=== PATIENT | female | born 1980 | race African-American/Black ===

== ENCOUNTER 2017-09-16 17:16 | Emergency (ER) | payer SELFPAY ==
--- NOTE | 2017-09-16 18:34 | EDM.PDOC ---
ED HPI GENERAL MEDICAL PROBLEM - General Chief Complaint: Lower Extremity Injury/Pain Stated Complaint: RT LEG PAIN Time Seen by Provider: 09/16/17 17:26 Source of Information: Reports: Patient History Limitations: Reports: No Limitations - History of Present Illness INITIAL COMMENTS - FREE TEXT/NARRATIVE: History of present illness: []Patient started doing yoga a few weeks ago and started having knee pain that has improved however her pain now is in her calf. She denies any leg or foot swelling, chest pain or shortness of breath. Also requesting a test be done Review of systems: As per history of present illness and below otherwise all systems reviewed and negative. Past medical history: As per history of present illness and as reviewed below otherwise noncontributory. Surgical history: As per history of present illness and as reviewed below otherwise noncontributory. Social history: No reported history of drug or alcohol abuse. Family history: As per history of present illness and as reviewed below otherwise noncontributory. Physical exam: General: Well developed, well nourished in NAD HEENT: Atraumatic, normocephalic, pupils reactive, negative for conjunctival pallor or scleral icterus, mucous membranes moist, throat clear, neck supple, nontender, trachea midline. Lungs: Clear to auscultation, breath sounds equal bilaterally, chest nontender. Heart: S1S2, regular, negative for clicks, rubs, or JVD. Abdomen: Soft, nondistended, nontender. Negative for masses or hepatosplenomegaly. Negative for costovertebral tenderness. Pelvis: Stable nontender. Genitourinary: Deferred. Rectal: Deferred. Extremities: Atraumatic, negative for cords or calf pain. Neurovascular unremarkable. Neuro: Awake, alert, oriented. Cranial nerves II through XII unremarkable. Cerebellum unremarkable. Motor and sensory unremarkable throughout. Exam nonfocal. Diagnostics: []Ultrasound ordered after a positive d-dimer was resulted patient requested hCG screen and that was ordered in the serum results pending Dr. Ledezma to dispose patient Therapeutics: [] Impression: [] Plan: [] Definitive disposition and diagnosis as appropriate pending reevaluation and review of above. Right Leg Pain Score (Numeric/FACES): 6 - Related Data Allergies Allergy/AdvReac Type Severity Reaction Status Date / Time No Known Allergies Allergy Verified 09/16/17 18:13 Home Meds: Home Meds Levothyroxine 175 mcg PO ACBRK 09/16/17 [History] amLODIPine [Norvasc] 1 tab PO DAILY 09/16/17 [History] Past Medical History Cardiovascular History: Reports: Hypertension Endocrine/Metabolic History: Reports: Hypothyroidism Social & Family History - Family History Family Medical History: Noncontributory - Tobacco Use Smoking Status *Q: Never Smoker - Caffeine Use Caffeine Use: Reports: Coffee - Recreational Drug Use Recreational Drug Use: No Review of Systems - Review of Systems Review Of Systems: See Below (See history of present illness) ED EXAM, GENERAL - Physical Exam Exam: See Below (See history of present illness) Course - Vital Signs Last Recorded V/S: Last Vital Signs Temp 98.1 F 09/16/17 18:10 Pulse 62 09/16/17 22:08 Resp 12 09/16/17 22:08 BP 125/75 09/16/17 22:08 Pulse Ox 100 09/16/17 22:08 - Orders/Labs/Meds Orders: Active Orders 24 hr Category Date Time Status Venous Doppler Lwr Ext Rt [US] Stat Exams 09/16/17 18:30 Taken Labs: Laboratory Tests 09/16/17 09/16/17 Range/Units 17:57 17:57 D-Dimer, Quantitative 3.58 H (0.0-0.52) mg/LFEU HCG, Qual NEGATIVE (NEG) Departure - Departure Time of Disposition: 19:00 Disposition: Still A Patient 30 Clinical Impression: Pain of lower leg - Discharge Information Instructions: Medical Screening Exam Referrals: Radha Yan HEAT TREATING BLUER [Primary Care Provider] - Forms: ED Department Discharge - My Orders Last 24 Hours: My Active Orders 09/16/17 18:30 Venous Doppler Lwr Ext Rt [US] Stat - Assessment/Plan Last 24 Hours: My Active Orders 09/16/17 18:30 Venous Doppler Lwr Ext Rt [US] Stat
--- NOTE | 2017-09-17 15:46 | US ---
EXAM DATE: 09/16/17 PATIENT'S AGE: 37 Patient: CHAN SARMIENTO Facility: [place], [place] Site . Site : [id number] Study: US Extremity Right [id number]/[id number] 7:33:48 PM Ordering Physician: Ty Esquivel Final Report: INDICATION: Calf pain TECHNIQUE: Ultrasound venous duplex lower right extremity. Compression venous exam was performed using weiner-scale, color Doppler, and spectral Doppler imaging. COMPARISON: None available FINDINGS: The right common femoral vein is fully compressible. The proximal superficial femoral vein appears incompletely compressible on the submitted image, although reported to be fully compressible by the technologist, compatible with a partial thrombus. Grayscale evaluation of the mid to distal superficial femoral vein is limited, however color Doppler flow is present. The popliteal vein appears compressible. The visualized portions of the posterior tibial and peroneal veins demonstrates color Doppler flow, however grayscale compression images are not submitted. IMPRESSION: Findings consistent with partial deep venous thrombosis in the proximal right superficial femoral vein. Recommend repeat evaluation. Dictated by Adán Mcgee MD @ 09/16/2017 8:34:08 PM Dictated by: Adán Mcgee MD @ 09/16/2017 20:34:14 ----- ADDENDUM ----- The findings were discussed with Dr. Solis, by phone, on 09/16/2017 at 8:40 p.m. Dictated by Adán Mcgee MD @ Sep 16 2017 8:53PM ----- ADDENDUM ----- Additional grayscale compression images of the proximal to mid right superficial femoral vein have been submitted, including real-time Cine images, which demonstrate complete compressibility of the vessel, without sonographic evidence of regional deep venous thrombosis at this time. Dictated by Adán Mcgee MD @ Sep 16 2017 9:09PM (Electronic Signature) Report Signed by Proxy. GUILLERMINA
== END 2017-09-16 22:09 | disposition still patient (30) ==
LOC: MW.ED 17:16
DX: M79.661 Pain in right lower leg (principal); I10 Essential (primary) hypertension; E03.9 Hypothyroidism, unspecified; Z79.899 Other long term (current) drug therapy
CPT/HCPCS: 36415; 84703; 85379; 93971-26-RT; 93971-RT; 99284; 99284-25

== ENCOUNTER 2018-06-30 05:32 | Inpatient (IN) | payer BC ==
--- NOTE | 2018-06-29 09:46 | PCM.LDHP ---
L&D History of Present Illness - General Date of Service: 06/29/18 Admit Problem/Dx: Patient Status Order with Admit Dx/Problem 06/29/18 09:41 Patient Status [ADT] Routine Admission Diagnosis/Problem Admission Diagnosis/Problem Source of Information: Patient History Limitations: Reports: No Limitations - History of Present Illness Improves with: Reports: None Worsens with: Reports: None Associated Symptoms: Reports: N - Related Data Allergies/Adverse Reactions: Allergies Allergy/AdvReac Type Severity Reaction Status Date / Time No Known Allergies Allergy Verified 06/27/18 10:34 Home Medications: Home Meds Levothyroxine 175 mcg PO ACBRK 09/16/17 [History] NIFEdipine [Nifedipine ER] 30 mg PO DAILY 05/17/18 [History] Vits #93/Iron Fum/FA [ Formula Tablet] 1 each PO DAILY [History] Past Medical History HEENT History: Reports: Other (See Below) Other HEENT History: wears glasses Cardiovascular History: Reports: Hypertension Other Cardiovascular History: " murmur" Gastrointestinal History: Reports: Other (See Below) Other Gastrointestinal History: heartburn with , hemangioma on liver Genitourinary History: Reports: None 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) Other OB/BYN History: induced AB Endocrine/Metabolic History: Reports: Hypothyroidism, Obesity/BMI 30+ - Past Surgical History Head Surgeries/Procedures: Reports: None Female Surgical History: Reports: Breast Biopsy Social & Family History - Family History Family Medical History: Noncontributory - Tobacco Use Smoking Status *Q: Former Smoker Used Tobacco, but Quit: Yes Month/Year Tobacco Last Used: quit smoking 2 yrs ago - Caffeine Use Caffeine Use: Reports: Coffee - Recreational Drug Use Drug Use in Last 12 Months: No H&P Review of Systems - Review of Systems: Review Of Systems: See Below General: Reports: No Symptoms HEENT: Reports: No Symptoms Pulmonary: Reports: No Symptoms Cardiovascular: Reports: No Symptoms Gastrointestinal: Reports: No Symptoms Genitourinary: Reports: No Symptoms Musculoskeletal: Reports: No Symptoms Skin: Reports: No Symptoms Psychiatric: Reports: No Symptoms Neurological: Reports: No Symptoms Hematologic/Lymphatic: Reports: No Symptoms Immunologic: Reports: No Symptoms L&D Exam - Exam Exam: See Below - Vital Signs Weight: 136.985 kg - OB Specific Fundal Height In cm: 41 Contraction Intensity: Mild Movement: Active Heart Tones: Present Presentation: Vertex - Cortez Score Cortez Score Cervix Position: Midposition Cortez Score Consistency: Firm Cortez Score Effacement: 31-50% Cortez Score Dilation: Closed Cortez Score Infant's Station: -3 Cortez Score Total: 2 - Exam General: Alert, Oriented HEENT: PERRLA, Conjunctiva Clear, EACs Clear, EOMI, Hearing Intact, Mucosa Moist & [place], Nares Patent, Normal Nasal Septum, Posterior Pharynx Clear, TMs Clear Neck: Supple, Trachea Midline Lungs: Clear to Auscultation, Normal Respiratory Effort Cardiovascular: Regular Rate, Regular Rhythm GI/Abdominal Exam: Normal Bowel Sounds, Soft, Non-Tender, No Organomegaly, No Distention, No Abnormal Bruit, No Mass, Pelvis Stable Rectal Exam: Normal Exam, Normal Rectal Tone Genitourinary: Normal external exam, Normal bimanual exam, Normal speculum exam Back Exam: Normal Inspection, Full Range of Motion Extremities: Normal Inspection, Normal Range of Motion, Non-Tender, No Pedal Edema, Normal Capillary Refill Skin: Warm, Dry, Intact Neurological: Cranial Nerves Intact, Reflexes Equal Bilateral Psychiatric: Alert, Normal Affect, Normal Mood Problem List Initiated/Reviewed/Updated: Yes Orders Last 24hrs: Active Orders 24 hr Category Date Time Status Patient Status [ADT] Routine ADT 06/29/18 09:41 Ordered Non Stress Test [RC] PER UNIT ROUTINE Care 06/29/18 09:41 Ordered Procedure Site Prep Instruct [RC] ASDIRECTED Care 06/29/18 09:41 Ordered Up ad Regina [RC] ASDIRECTED Care 06/29/18 09:41 Ordered Vital Signs [RC] PER UNIT ROUTINE Care 06/29/18 09:41 Ordered CBC W/O DIFF,HEMOGRAM [HEME] Routine Lab 06/29/18 09:41 Ordered TYPE AND SCREEN [BBK] Routine Lab 06/29/18 09:41 Ordered Citric Acid/Sodium Citrate [Bicitra Solution] Med 06/29/18 09:41 Once 30 ml PO ONETIME ONE Lactated Ringers [Ringers, Lactated] 1,000 ml Med 06/29/18 09:45 Ordered IV BOLUS Oxytocin/0.9 % Sodium Chloride [Oxytocin 30 Unit/500 ML Med 06/29/18 09:45 Ordered -NS] 30 unit in 500 ml IV TITRATE Sodium Chloride 0.9% [Saline Flush] Med 06/29/18 09:41 Ordered 10 ml FLUSH ASDIRECTED PRN Sodium Chloride 0.9% [Saline Flush] Med 06/29/18 09:41 Ordered 2.5 ml FLUSH ASDIRECTED PRN ceFAZolin [Ancef] 2 gm Med 06/29/18 09:41 Ordered Premix Bag 1 bag IV ONETIME Peripheral IV Insertion Adult [OM.PC] Routine Oth 06/29/18 09:41 Ordered Schedule Procedure [COMM] Per Unit Routine Oth 06/29/18 09:41 Ordered Resuscitation Status Routine Resus Stat 06/29/18 09:41 Ordered Assessment/Plan Comment:: This is 38 years old patient and she is 58+4 she is admitted for elective repeat section primary because of her advanced maternal age and also because she have a 60 cm hepatic hemangioma her vital sign and her liver function tests is stable. It is recommended for her to have a primary section by the perinatologist and by that hepatic disease websphere commerce consultant and [facility].
[~2018-06-30 05:32] MED LIST: Citric Acid/Sodium Citrate Solution 30 ML Cup PO ONE; Oxytocin/0.9 % Sodium Chloride 30 UNIT/500 ML BAG IV SCH; Sodium Chloride 0.9% 10 ML Syringe FLUSH PRN; Sodium Chloride 0.9% 2.5 ML Syringe FLUSH PRN; ceFAZolin 2 GM in Premix Bag 1 BAG IV ONE
[2018-06-30] MEDS: Lactated Ringers 1,000 ML IV SCH ×2 (05:57→06:45)
--- NOTE | 2018-06-30 06:48 | PCM.PREANE ---
Preanesthetic Assessment - Anesthesia/Transfusion/Family Hx Anesthesia History: Prior Anesthesia Without Reaction Family History of Anesthesia Reaction: No Transfusion History: No Prior Transfusion(s) - Review of Systems General: No Symptoms Pulmonary: No Symptoms Cardiovascular: No Symptoms Gastrointestinal: No Symptoms Neurological: No Symptoms Other: Reports: None - Physical Assessment NPO Status Date: 06/29/18 NPO Status Time: 22:00 Height: 5 ft 8 in Weight: 136.985 kg ASA Class: 3 Mental Status: Alert & Oriented x3 Airway Class: Mallampati = 2 Dentition: Reports: Normal Dentition Thyro-Mental Finger Breadths: 3 Mouth Opening Finger Breadths: 3 ROM/Head Extension: Full Lungs: Clear to Auscultation, Normal Respiratory Effort Cardiovascular: Regular Rate, Regular Rhythm - Lab Values: Laboratory Last Values WBC 7.16 K/uL (4.0-11.0) 06/29/18 10:00 RBC 3.97 M/uL (4.30-5.90) L 06/29/18 10:00 Hgb 12.4 g/dL (12.0-16.0) 06/29/18 10:00 Hct 36.4 % (36.0-46.0) 06/29/18 10:00 MCV 91.7 fL (80.0-98.0) 06/29/18 10:00 MCH 31.2 pg (27.0-32.0) 06/29/18 10:00 MCHC 34.1 g/dL (31.0-37.0) 06/29/18 10:00 RDW Std Deviation 51.3 fl (28.0-62.0) 06/29/18 10:00 RDW Coeff of Danya 15 % (11.0-15.0) 06/29/18 10:00 Plt Count 214 K/uL (150-400) 06/29/18 10:00 MPV 9.80 fL (7.40-12.00) 06/29/18 10:00 Nucleated RBC % 0.0 /100WBC 06/29/18 10:00 Nucleated RBCs # 0 K/uL 06/29/18 10:00 Blood Type O NEGATIVE 06/29/18 10:00 Antibody Screen NEGATIVE 06/29/18 10:00 - Allergies Allergies/Adverse Reactions: Allergies Allergy/AdvReac Type Severity Reaction Status Date / Time No Known Allergies Allergy Verified 06/27/18 10:34 - Anesthesia Plan Free Text/Narrative:: Pt scheduled for elective due to the recommendations of the Hepatic Specialist and Perinatologist at [facility]. Pt also verbally consents to receiving blood or blood products. - Acknowledgements Anesthesia Type Planned: Spinal (Duramorph) Pt an Appropriate Candidate for the Planned Anesthesia: Yes Alternatives and Risks of Anesthesia Discussed w Pt/Guardian: Yes Pt/Guardian Understands and Agrees with Anesthesia Plan: Yes PreAnesthesia Questionnaire HEENT History: Reports: Other (See Below) Other HEENT History: wears glasses Cardiovascular History: Reports: Hypertension Other Cardiovascular History: " murmur" - seen and evaulated by Dr Gregory. Echo essentially unremarkable. 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: , Other (See Below) : 2 Para: 1 LMP (Approximate): Other OB/BYN History: induced AB Musculoskeletal History: Reports: None Neurological History: Reports: None Psychiatric History: Reports: None Endocrine/Metabolic History: Reports: Hypothyroidism, Obesity/BMI 30+ (Morbid obesity) Hematologic History: Reports: None Immunologic History: Reports: None Oncologic (Cancer) History: Reports: None Dermatologic History: Reports: None - Infectious Disease History Infectious Disease History: Reports: None - Past Surgical History Head Surgeries/Procedures: Reports: None Female Surgical History: Reports: Breast Biopsy - SUBSTANCE USE Smoking Status *Q: Former Smoker - HOME MEDS Home Medications: Home Meds Levothyroxine 175 mcg PO ACBRK 09/16/17 [History] NIFEdipine [Nifedipine ER] 30 mg PO DAILY 05/17/18 [History] Vits #93/Iron Fum/FA [ Formula Tablet] 1 each PO DAILY [History] - CURRENT (IN HOUSE) MEDS Current Meds: Current Medications Lactated Ringer's (Ringers, Lactated) 1,000 mls @ 500 mls/hr IV BOLUS ALEXANDER Last Admin: 06/30/18 06:45 Dose: 500 mls/hr Oxytocin/Sodium Chloride (Oxytocin 30 Unit/500 Ml-Ns) 30 unit in 500 mls @ 250 mls/hr IV TITRATE ALEXANDER Sodium Chloride (Saline Flush) 10 ml FLUSH ASDIRECTED PRN PRN Reason: Keep Vein Open Sodium Chloride (Saline Flush) 2.5 ml FLUSH ASDIRECTED PRN PRN Reason: Keep Vein Open Discontinued Medications Citric Acid/Sodium Citrate (Bicitra Solution) 30 ml PO ONETIME ONE Stop: 06/29/18 09:42 Cefazolin Sodium/Dextrose 2 gm (/ Premix) 50 mls @ 100 mls/hr IV ONETIME ONE Stop: 06/29/18 10:10
[2018-06-30] MEDS ORDERED: ceFAZolin/Dextrose,Iso-Osmotic 2 GM/50 ML Duplex Bag IV ONE (07:18)
[2018-06-30] MEDS ORDERED: ePHEDrine 50 MG/ML SDV ONE (07:20)
[2018-06-30] MEDS ORDERED: Morphine PF 1 MG/ML Amp ONE (07:22)
[2018-06-30] MEDS ORDERED: Citric Acid/Sodium Citrate Solution 30 ML Cup PO ONE (07:44)
[2018-06-30] MEDS ORDERED: Phenylephrine/Normal Saline 100 MCG/ML 10 ML Syringe ONE (08:22)
[2018-06-30] MEDS ORDERED: diphenhydrAMINE 50 MG/ML SDV IVPUSH PRN ×2 (08:46→08:52)
[2018-06-30] MEDS ORDERED: Nalbuphine 10 MG/1 ML Vial IVPUSH PRN (08:46)
[2018-06-30] MEDS ORDERED: Naloxone 0.4 MG/ML Syringe IVPUSH PRN (08:46)
[2018-06-30] MEDS ORDERED: fentaNYL 100 MCG/2 ML SDV IVPUSH PRN (08:47)
[2018-06-30] MEDS ORDERED: Acetaminophen/oxyCODONE 325-5 MG Tab PO PRN ×3 (08:47→08:52)
[2018-06-30] MEDS ORDERED: Octyl 2-Cyanoacrylate 1 Tube ONE (08:47)
[2018-06-30] MEDS ORDERED: Bisacodyl 10 MG Supp RECTAL PRN (08:52)
[2018-06-30] MEDS ORDERED: Ondansetron 4 MG/2 ML SDV IV PRN (08:52)
[2018-06-30] MEDS ORDERED: Lanolin 100% Cream 7 GM Tube TOP PRN (08:52)
--- NOTE | 2018-06-30 08:56 | PCM.OPNOTE ---
- General Post-Op/Procedure Note Date of Surgery/Procedure: 06/30/18 Operative Procedure(s): Primary C/Section. Pre Op Diagnosis: [id number]+4, Hepatic Hemengioma, primary hypertension. advance meternal age. Post-Op Diagnosis: Same Anesthesia Technique: Spinal Primary Surgeon: Gregory Ochoa Galvanizing Pot Runner: Sasha Ferrara EBL in mLs: 800 Complications: None Condition: Good
[2018-06-30] MEDS ORDERED: Lactated Ringers 1,000 ML IV SCH (09:00)
[2018-06-30] MEDS: Ketorolac 30 MG/ML SDV IVPUSH SCH ×3 (09:30→21:29)
--- NOTE | 2018-06-30 09:58 | PCM.POSTAN ---
POST ANESTHESIA ASSESSMENT - MENTAL STATUS Mental Status: Alert, Oriented - RESPIRATORY Respiratory Status: Respiratory Rate WNL, Airway Patent, O2 Saturation Stable - CARDIOVASCULAR CV Status: Pulse Rate WNL - GASTROINTESTINAL GI Status: No Symptoms - PAIN Pain Score: 0 - POST OP HYDRATION Hydration Status: Adequate & Stable - OBSERVATIONS Free Text/Narrative:: no anesthesia problems
--- NOTE | 2018-06-30 16:21 | OR ---
SURGEON: Gregory Ochoa MD DATE OF PROCEDURE: 06/30/2018 PREOPERATIVE DIAGNOSES: 1. Intrauterine , 38 plus 4. 2. Advanced maternal age. 3. Hepatic hemangioma. 4. Primary hypertension. POSTOPERATIVE DIAGNOSES: 1. Intrauterine , 38 plus 4. 2. Advanced maternal age. 3. Hepatic hemangioma. 4. Primary hypertension. OPERATION PERFORMED: Primary low-transverse section. COMIC BOOK DESIGNER: NEERAJ Baker ANESTHESIA: Spinal, Vero Walsh and Dr. Richy Calderón. ESTIMATED BLOOD LOSS: 800 mL. COMPLICATIONS: None. FINDINGS: Fetus' scores reported to be 7 and 9. The weight is not available at this time. INDICATIONS FOR SURGERY: This patient is 38 years old. She has primary hypertension. Her is complicated by a hepatic hemangioma about 16 to 17 cm in diameter. The patient had consultation with a javascript engineer in the [facility] and he suggested that she should have a primary section. DESCRIPTION OF PROCEDURE: The patient was brought to the OR, properly identified. After adequate level of spinal anesthesia, the patient was prepped and draped in sterile fashion as usual. A low transverse Pfannenstiel skin incision was done. David fascia and rectus fascia opened in the direction of the incision. The 2 recti muscles were and then peritoneal cavity was entered. Bladder flap was raised in the usual manner, pushing the bladder away from the lower uterine segment, low transverse uterine incision extended manually with end. Fetus was in the vertex position, delivered, and cried immediately. scores reported to be 7 and 9. Weight was not available. The placenta delivered spontaneous, complete, and intact. Then, repair of the lower uterine segment was done with 2-0 Vicryl continuous interlocking in 2 layers. Inspection of the lower uterine segment shows no oozing, no bleeding, and the peritoneal cavity was evacuated completely from all blood and blood clot and closed with 3-0 Vicryl continuous. The rectus fascia was closed with #1 PDS double strand continuous, the David fascia with 3- 0 Vicryl continuous, the skin was closed with 3-0 on a Jimenez needle in a subcuticular fashion. Instrument and sponge counts were correct. The patient tolerated the procedure well, went to recovery room in stable general condition. VANITA / JARED /[id number]
[2018-06-30] MEDS: Docusate Sodium 100 MG Cap PO SCH ×2 (21:28→21:31)
[2018-07-01] MEDS: Ketorolac 30 MG/ML SDV IVPUSH SCH ×2 (04:19→09:48)
--- NOTE | 2018-07-01 07:48 | PCM48HPAN ---
Post Anesthesia Note - EVALUATION WITHIN 48HRS OF ANESTHETIC Vital Signs in Normal Range: Yes Patient Participated in Evaluation: Yes Respiratory Function Stable: Yes Airway Patent: Yes Cardiovascular Function Stable: Yes Hydration Status Stable: Yes Pain Control Satisfactory: Yes Nausea and Vomiting Control Satisfactory: Yes Mental Status Recovered: Yes Resp Rate: 18
--- NOTE | 2018-07-01 09:23 | PCM.PNPP ---
- General Info Date of Service: 07/01/18 Functional Status: Reports: Pain Controlled - Review of Systems General: Reports: No Symptoms HEENT: Reports: No Symptoms Pulmonary: Reports: No Symptoms Cardiovascular: Reports: No Symptoms Gastrointestinal: Reports: No Symptoms Genitourinary: Reports: No Symptoms Musculoskeletal: Reports: No Symptoms Skin: Reports: No Symptoms Neurological: Reports: No Symptoms Psychiatric: Reports: No Symptoms - Patient Data Vital Signs - Most Recent: Last Vital Signs Temp 36.6 C 07/01/18 04:00 Pulse 67 07/01/18 07:00 Resp 18 07/01/18 07:47 BP 128/75 07/01/18 04:00 Pulse Ox 96 07/01/18 07:00 Weight - Most Recent: 136.985 kg I&O - Last 24 Hours: Intake & Output 06/30/18 07/01/18 07/01/18 22:59 06:59 14:59 Intake Total 1352 700 Output Total 500 2165 Balance 852 -1465 Lab Results - Last 24 Hours: Laboratory Results - last 24 hr 06/30/18 07/01/18 Range/Units 10:00 05:40 Hgb 10.9 L (12.0-16.0) g/dL Hct 32.5 L (36.0-46.0) % Screen NEGATIVE (NEGATIVE) RhIG Candidate? YES Rhogam Indicated YES, BABY RH POS H Med Orders - Current: Current Medications Bisacodyl (Dulcolax) 10 mg RECTAL ONETIME PRN PRN Reason: Constipation Diphenhydramine HCl (Benadryl) 25 mg IVPUSH Q6H PRN PRN Reason: Itching or Nausea Docusate Sodium (Colace) 100 mg PO BID [facility] Last Admin: 06/30/18 21:31 Dose: 100 mg Emollient Ointment (Lansinoh Hpa) 0 gm TOP ASDIRECTED PRN PRN Reason: Sore Nipples Fentanyl (Sublimaze) 25 - 50 mcg IVPUSH Q30M PRN PRN Reason: Pain Lactated Ringer's (Ringers, Lactated) 1,000 mls @ 500 mls/hr IV BOLUS [facility] Last Admin: 06/30/18 06:45 Dose: 500 mls/hr Oxytocin/Sodium Chloride (Oxytocin 30 Unit/500 Ml-Ns) 30 unit in 500 mls @ 250 mls/hr IV TITRATE [facility] Lactated Ringer's (Ringers, Lactated) 1,000 mls @ 125 mls/hr IV ASDIRECTED [facility] Last Admin: 06/30/18 14:46 Dose: 125 mls/hr Ibuprofen (Motrin) 800 mg PO Q8H PRN PRN Reason: mild pain or fever Ondansetron HCl (Zofran) 4 mg IV Q4H PRN PRN Reason: Nausea/Vomiting Oxycodone/Acetaminophen (Percocet 325-5 Mg) 1 - 2 tab PO Q6H PRN PRN Reason: Pain Stop: 07/02/18 14:00 Oxycodone/Acetaminophen (Percocet 325-5 Mg) 1 tab PO Q4H PRN PRN Reason: Pain (moderate 4-6) Oxycodone/Acetaminophen (Percocet 325-5 Mg) 2 tab PO Q4H PRN PRN Reason: Pain (moderate 4-6) Sodium Chloride (Saline Flush) 10 ml FLUSH ASDIRECTED PRN PRN Reason: Keep Vein Open Sodium Chloride (Saline Flush) 2.5 ml FLUSH ASDIRECTED PRN PRN Reason: Keep Vein Open Discontinued Medications Cefazolin Sodium/Dextrose (Ancef) Confirm Administered Dose 2 gm IV .STK-MED ONE Stop: 06/30/18 07:19 Citric Acid/Sodium Citrate (Bicitra Solution) 30 ml PO ONETIME ONE Stop: 06/29/18 09:42 Citric Acid/Sodium Citrate (Bicitra Solution) 30 ml PO ONETIME ONE Stop: 06/30/18 07:45 Last Admin: 06/30/18 07:58 Dose: 30 ml Diphenhydramine HCl (Benadryl) 25 mg IVPUSH Q4H PRN PRN Reason: Itching Stop: 07/01/18 08:47 Ephedrine Sulfate (Ephedrine Sulfate) Confirm Administered Dose 50 mg .ROUTE .STK-MED ONE Stop: 06/30/18 07:21 Cefazolin Sodium/Dextrose 2 gm (/ Premix) 50 mls @ 100 mls/hr IV ONETIME ONE Stop: 06/29/18 10:10 Ketorolac Tromethamine (Toradol) 30 mg IVPUSH Q6H [facility] Stop: 07/01/18 09:01 Last Admin: 07/01/18 04:19 Dose: 30 mg Morphine Sulfate (Duramorph Pf) Confirm Administered Dose 1 mg .ROUTE .STK-MED ONE Stop: 06/30/18 07:23 Nalbuphine HCl (Nubain) 5 mg IVPUSH Q3H PRN PRN Reason: Pruritis Stop: 07/01/18 08:47 Naloxone HCl (Narcan) 0.1 mg IVPUSH ONETIME PRN PRN Reason: Other Stop: 07/01/18 08:47 Octyl Cyanoacrylate (Dermabond Advance) Confirm Administered Dose 1 applic .ROUTE .STK-MED ONE Stop: 06/30/18 08:48 Phenylephrine HCl (Phenylephrine In Ns 100 Mcg/Ml) Confirm Administered Dose 1 mg .ROUTE .STK-MED ONE Stop: 06/30/18 08:23 - Infant Interaction Support Person: Significant Other - Recovery Exam Fundal Tone: Firm Fundal Level: At Umbilicus Fundal Placement: Midline Lochia Amount: Scant Lochia Color: Rubra/Red Perineum Description: Intact, Minimal Bruising/Swelling Episiotomy/Laceration: None Bladder Status: Indwelling Catheter in Place Urinary Elimination: Indwelling Catheter - Exam General: Alert, Oriented HEENT: Pupils Equal Neck: Supple Lungs: Clear to Auscultation, Normal Respiratory Effort Cardiovascular: Regular Rate, Regular Rhythm GI/Abdominal Exam: Normal Bowel Sounds, Soft, Non-Tender, No Organomegaly, No Distention, No Abnormal Bruit, No Mass, Pelvis Stable Extremities: Normal Inspection, Normal Range of Motion, Non-Tender, No Pedal Edema, Normal Capillary Refill Skin: Warm, Dry, Intact Wound/Incisions: Healing Well Neurological: No New Focal Deficit Psy/Mental Status: Alert, Normal Affect, Normal Mood - Problem List Review Problem List Initiated/Reviewed/Updated: Yes - My Orders Last 24 Hours: My Active Orders 06/30/18 08:52 Patient Status [ADT] Routine Ambulate [RC] PER UNIT ROUTINE Communication Order [RC] PER UNIT ROUTINE Communication Order [RC] PER UNIT ROUTINE Communication Order [RC] Per Unit Routine May Shower [RC] ASDIRECTED RT Incentive Spirometry [RC] Q2HWA Acetaminophen/oxyCODONE [Percocet 325-5 MG] 1 tab PO Q4H PRN Acetaminophen/oxyCODONE [Percocet 325-5 MG] 2 tab PO Q4H PRN Bisacodyl [Dulcolax] 10 mg RECTAL ONETIME PRN Ibuprofen [Motrin] 800 mg PO Q8H PRN Lanolin [Lansinoh HPA] See Dose Instructions TOP ASDIRECTED PRN Ondansetron [Zofran] 4 mg IV Q4H PRN diphenhydrAMINE [Benadryl] 25 mg IVPUSH Q6H PRN Assess Lochia [WOMSER] Per Unit Routine Assess Uterine Involution [WOMSER] Per Unit Routine Breast Pump [WOMSER] Per Unit Routine Peripheral IV Discontinue [OM.PC] Routine Sequential Compression Device [OM.PC] Per Unit Routine 06/30/18 09:00 Docusate Sodium [Colace] 100 mg PO BID Lactated Ringers [Ringers, Lactated] 1,000 ml IV ASDIRECTED 06/30/18 Dinner Regular Diet [DIET] - Assessment Assessment:: Status post section postoperative day #1 patient is doing well on regular diet tolerance and very well-healed incision is clean dry and she is voiding without any problem normal lochia. Well-padded to discharge her in the morning - Plan Plan:: This is 38 years old patient and she is 58+4 she is admitted for elective repeat section primary because of her advanced maternal age and also because she have a 60 cm hepatic hemangioma her vital sign and her liver function tests is stable. It is recommended for her to have a primary section by the perinatologist and by that hepatic disease solution consultant and [facility].
[2018-07-01] MEDS: Docusate Sodium 100 MG Cap PO SCH ×2 (09:48→20:14)
[2018-07-01] MEDS: Ibuprofen 800 MG Tab PO PRN (16:11)
[2018-07-02] MEDS: Ibuprofen 800 MG Tab PO PRN ×2 (02:01→09:18)
--- NOTE | 2018-07-02 08:19 | PCM.PNPP ---
- General Info Date of Service: 07/02/18 Functional Status: Reports: Pain Controlled - Review of Systems General: Reports: No Symptoms HEENT: Reports: No Symptoms Pulmonary: Reports: No Symptoms Cardiovascular: Reports: No Symptoms Gastrointestinal: Reports: No Symptoms Genitourinary: Reports: No Symptoms Musculoskeletal: Reports: No Symptoms Skin: Reports: No Symptoms Neurological: Reports: No Symptoms Psychiatric: Reports: No Symptoms - General Info Date of Service: 07/02/18 - Patient Data Vital Signs - Most Recent: Last Vital Signs Temp 36.3 C 07/02/18 04:00 Pulse 63 07/02/18 04:00 Resp 17 07/02/18 04:00 BP 120/70 07/02/18 04:00 Pulse Ox 98 07/02/18 04:00 Weight - Most Recent: 136.985 kg Med Orders - Current: Current Medications Bisacodyl (Dulcolax) 10 mg RECTAL ONETIME PRN PRN Reason: Constipation Diphenhydramine HCl (Benadryl) 25 mg IVPUSH Q6H PRN PRN Reason: Itching or Nausea Docusate Sodium (Colace) 100 mg PO BID [facility] Last Admin: 07/01/18 20:14 Dose: 100 mg Emollient Ointment (Lansinoh Hpa) 0 gm TOP ASDIRECTED PRN PRN Reason: Sore Nipples Fentanyl (Sublimaze) 25 - 50 mcg IVPUSH Q30M PRN PRN Reason: Pain Lactated Ringer's (Ringers, Lactated) 1,000 mls @ 500 mls/hr IV BOLUS [facility] Last Admin: 06/30/18 06:45 Dose: 500 mls/hr Oxytocin/Sodium Chloride (Oxytocin 30 Unit/500 Ml-Ns) 30 unit in 500 mls @ 250 mls/hr IV TITRATE [facility] Lactated Ringer's (Ringers, Lactated) 1,000 mls @ 125 mls/hr IV ASDIRECTED [facility] Last Admin: 06/30/18 14:46 Dose: 125 mls/hr Ibuprofen (Motrin) 800 mg PO Q8H PRN PRN Reason: mild pain or fever Last Admin: 07/02/18 02:01 Dose: 800 mg Ondansetron HCl (Zofran) 4 mg IV Q4H PRN PRN Reason: Nausea/Vomiting Oxycodone/Acetaminophen (Percocet 325-5 Mg) 1 - 2 tab PO Q6H PRN PRN Reason: Pain Stop: 07/02/18 14:00 Oxycodone/Acetaminophen (Percocet 325-5 Mg) 1 tab PO Q4H PRN PRN Reason: Pain (moderate 4-6) Oxycodone/Acetaminophen (Percocet 325-5 Mg) 2 tab PO Q4H PRN PRN Reason: Pain (moderate 4-6) Last Admin: 07/01/18 20:13 Dose: 2 tab Sodium Chloride (Saline Flush) 10 ml FLUSH ASDIRECTED PRN PRN Reason: Keep Vein Open Sodium Chloride (Saline Flush) 2.5 ml FLUSH ASDIRECTED PRN PRN Reason: Keep Vein Open Discontinued Medications Cefazolin Sodium/Dextrose (Ancef) Confirm Administered Dose 2 gm IV .STK-MED ONE Stop: 06/30/18 07:19 Citric Acid/Sodium Citrate (Bicitra Solution) 30 ml PO ONETIME ONE Stop: 06/29/18 09:42 Citric Acid/Sodium Citrate (Bicitra Solution) 30 ml PO ONETIME ONE Stop: 06/30/18 07:45 Last Admin: 06/30/18 07:58 Dose: 30 ml Diphenhydramine HCl (Benadryl) 25 mg IVPUSH Q4H PRN PRN Reason: Itching Stop: 07/01/18 08:47 Ephedrine Sulfate (Ephedrine Sulfate) Confirm Administered Dose 50 mg .ROUTE .STK-MED ONE Stop: 06/30/18 07:21 Cefazolin Sodium/Dextrose 2 gm (/ Premix) 50 mls @ 100 mls/hr IV ONETIME ONE Stop: 06/29/18 10:10 Last Admin: 07/01/18 10:37 Dose: Not Given Ketorolac Tromethamine (Toradol) 30 mg IVPUSH Q6H [facility] Stop: 07/01/18 09:01 Last Admin: 07/01/18 09:48 Dose: 30 mg Morphine Sulfate (Duramorph Pf) Confirm Administered Dose 1 mg .ROUTE .STK-MED ONE Stop: 06/30/18 07:23 Nalbuphine HCl (Nubain) 5 mg IVPUSH Q3H PRN PRN Reason: Pruritis Stop: 07/01/18 08:47 Naloxone HCl (Narcan) 0.1 mg IVPUSH ONETIME PRN PRN Reason: Other Stop: 07/01/18 08:47 Octyl Cyanoacrylate (Dermabond Advance) Confirm Administered Dose 1 applic .ROUTE .STK-MED ONE Stop: 06/30/18 08:48 Phenylephrine HCl (Phenylephrine In Ns 100 Mcg/Ml) Confirm Administered Dose 1 mg .ROUTE .STK-MED ONE Stop: 06/30/18 08:23 - Infant Interaction Infant Disposition, : in Room with Family Interaction: Holding Infant Infant Feeding: Attempted ; Nursed Fair/Poor Support Person: Significant Other - Recovery Exam Fundal Tone: Firm Fundal Level: 1 Fingerbreadths Below Umbilicus Fundal Placement: Midline Lochia Amount: Scant Lochia Color: Rubra/Red Perineum Description: Intact, Minimal Bruising/Swelling Episiotomy/Laceration: None Bladder Status: Voiding Urinary Elimination: Indwelling Catheter - Exam General: Alert, Oriented HEENT: Pupils Equal Neck: Supple Lungs: Clear to Auscultation, Normal Respiratory Effort Cardiovascular: Regular Rate, Regular Rhythm GI/Abdominal Exam: Normal Bowel Sounds, Soft, Non-Tender, No Organomegaly, No Distention, No Abnormal Bruit, No Mass, Pelvis Stable Extremities: Normal Inspection, Normal Range of Motion, Non-Tender, No Pedal Edema, Normal Capillary Refill Skin: Warm, Dry, Intact Wound/Incisions: Healing Well Neurological: No New Focal Deficit Psy/Mental Status: Alert, Normal Affect, Normal Mood - Problem List Review Problem List Initiated/Reviewed/Updated: Yes - Assessment Assessment:: Status post section postoperative day #1 patient is doing well on regular diet tolerance and very well-healed incision is clean dry and she is voiding without any problem normal lochia. Well-padded to discharge her in the morning - Plan Plan:: This is 38 years old patient and she is 58+4 she is admitted for elective repeat section primary because of her advanced maternal age and also because she have a 60 cm hepatic hemangioma her vital sign and her liver function tests is stable. It is recommended for her to have a primary section by the perinatologist and by that hepatic disease cruise consultant and [facility].
[2018-07-02] MEDS: Docusate Sodium 100 MG Cap PO SCH (09:18)
== END 2018-07-02 11:00 | disposition home or self-care (01) | DRG 540 ==
LOC: MW.OB 05:32
PROVIDERS: ADMIT Obstetrics & Gynecology; ATTEND Obstetrics & Gynecology
PROC: 10D00Z1 Extraction of Products of Conception, Low, Open Approach (ICD-10-PCS; principal; 2018-06-30)
DX: O10.92 Unspecified pre-existing hypertension complicating childbirth (principal); D18.09 Hemangioma of other sites; O09.523 Supervision of elderly multigravida, third trimester; Z3A.38 38 weeks gestation of pregnancy; Z37.0 Single live birth
CPT/HCPCS: 36415; 59025; 85014; 85018; 85027; 85460; 86850; 86900; 86901; A9270-GY; J0690; J1885; J2274; J2370; J2792; J7120